=== PATIENT | female | born 1995 | race Caucasian/White ===

== ENCOUNTER 2018-07-23 20:17 | Emergency (ER) | payer BC, OTHER ==
[~2018-07-23] VITALS: Ht 157.5 cm; Wt 48.1 kg
[2018-07-23 20:31] VITALS: BP 111/55
[2018-07-23 21:13] LABS: APPEARANCE,URINE Clear (CLEAR); BILIRUBIN,URINE Negative (NEGATIVE); BLOOD, URINE Negative Ery/uL (NEGATIVE); COLOR,URINE Yellow (YELLOW); KETONES,URINE Negative (NEGATIVE); LEUKOCYTE ESTERASE ,URINE Negative (NEGATIVE); NITRITE, URINE Negative (NEGATIVE); PROTEIN,URINE Negative (NEGATIVE); UGLUCOSE Negative (NEGATIVE); UROBILINOGEN,URINE 0.2 EU/dL (0.2)
[2018-07-23] MEDS ORDERED: FLUCONAZOLE (100 MG) 100 MG TABLET PO ONE (22:00)
[2018-07-23] MEDS ORDERED: FLUCONAZOLE (100 MG) 100 MG TABLET ONE (22:06)
== END 2018-07-23 22:15 | disposition home or self-care (01) ==
LOC: ER 20:28
DX: N89.8 Other specified noninflammatory disorders of vagina (principal)
CPT/HCPCS: 81000-TC; 84703-TC; 87210-TC